=== PATIENT | male | born 1985 | race African-American/Black ===

== ENCOUNTER 2016-10-02 12:08 | Emergency (ER) | payer OTHER ==
[~2016-10-02] VITALS: Ht 170.2 cm; Wt 66.2 kg
[~2016-10-02 12:08] MED LIST: BACTRIM,SEPT1 TABLET PO; BENADRYL ALLERG25 MG PO; CALCIUM ACETAT667 MG PO; CLEOCIN T30 GM TP; HUMALOG100 UNIT/1 SC; HYDRALAZINE HCL50 MG PO; LABETALOL HCL300 MG PO; LANTUS 10100 UNITS/ SC; LISINOPRIL30 MG PO; PANOXYL156 GM TP; PHENERGAN25 MG/ML IM; PRILOSEC OTC20 MG PO; PROCHLORPERAZIN10 MG PO; SENSIPAR30 MG PO; ZEMPLAR1 MCG PO
[2016-10-02 12:23] LABS: POINT-OF-CARE METER ID UU14100415
[2016-10-02 14:13] LABS: CARBON DIOXIDE (BICARBONATE) 26.7 MEQ/L (20-31); HEMATOCRIT 31.3 % (38.0-50.0); MCH 28.9 PG (29.0-34.0); MCHC 32.3 G/DL (30.0-36.0); MCV 89.4 FL (86-99); MEAN PLAT.VOLUME 9.4 uM^3 (9.0-12.4); PLATELET COUNT 306 K/uL (156-360); RBC DIS.WIDTH-CV 15.4 % (11.8-14.6); RBC DIS.WIDTH-SD 49.3 % (39-53)
[2016-10-02 14:24] LABS: CHLORIDE 100 mEq/L (99-109); POTASSIUM 3.7 mEq/L (3.7-5.4); SODIUM 139 mEq/L (136-147)
[2016-10-02 14:27] LABS: GLUCOSE 244 mg/dL (70-99)
[2016-10-02 14:28] LABS: ANION GAP 17 MEQ/L (2-14)
[2016-10-02 14:29] LABS: TOTAL BILIRUBIN 0.6 mg/dL (0.0-1.0)
[2016-10-02 14:30] LABS: ALKALINE PHOSPHATASE 157 IU/L (3-129); GFR ESTIMATE (CALCULATED) 5 mL/min/
[2016-10-02 14:31] LABS: UREA NITROGEN (BUN) 47 mg/dL (9-23)
[2016-10-02 14:34] LABS: LIPASE 33 U/L (1.0-51.0)
[2016-10-02 16:03] LABS: ADD MIUA? YES; BILIRUBIN NEGATIVE; BLOOD SMALL; COLOR STRAW ((YELLOW)); GLUCOSE (STRIP) >=500; KETONES NEGATIVE; LEUKOCYTES TRACE; NITRITE NEGATIVE; PROTEIN (STRIP) 100; SPECIFIC GRAVITY 1.007 (1.000-1.030); UROBILINOGEN 0.2 MG/DL (0.2-1.0)
[2016-10-02 16:20] LABS: AMPHETAMINE NEGATIVE (500 ng/mL); BARBITURATES NEGATIVE (200 ng/mL); BENZODIAZEPINES NEGATIVE (150 ng/mL); COCAINE NEGATIVE (150 ng/mL); INTERNAL CONTROLS VALID? YES; METHADONE NEGATIVE (200 ng/mL); METHAMPHETAMINE NEGATIVE (500 ng/mL); OPIATES (MORPHINE) NEGATIVE (100 ng/mL); OXYCODONE NEGATIVE (100 ng/mL); PHENCYCLIDINE NEGATIVE (25 ng/mL); PROPOXYPHENE NEGATIVE (300 ng/mL); THC CANNABINOIDS NEGATIVE (50 ng/mL); TRICYCLIC ANTIDEPRESSANTS NEGATIVE (300 ng/mL)
[2016-10-02 16:26] LABS: BACTERIA NONE SEEN /HPF; EPITHELIAL CELLS NONE SEEN /HPF; MUCUS NONE SEEN /LPF; RED BLOOD CELLS 15-20 /HPF (0-5); UCUL ADDED? NO
[2016-10-02 17:18] VITALS: BP 164/86
== END 2016-10-02 18:39 | disposition short-term general hospital (02) ==
LOC: EME 12:08
PROVIDERS: Emergency Medicine
DX: N39.0 Urinary tract infection, site not specified (principal); R11.10 Vomiting, unspecified; E11.65 Type 2 diabetes mellitus with hyperglycemia; N18.6 End stage renal disease; Z99.2 Dependence on renal dialysis; Z79.4 Long term (current) use of insulin
CPT/HCPCS: 74176; 80053; 81003; 82010; 82803; 82948; 83690; 85027; 87040; 87086; 99281; 99285; J0692; J2270; J2405; J3010; J7030; J7050